=== PATIENT | female | born 1990 | race Two or more races ===

== ENCOUNTER 2023-07-15 17:57 | Emergency (ER) | payer OTHER ==
[~2023-07-15] VITALS: Ht 165.1 cm; Wt 93.2 kg
[~2023-07-15 17:57] MED LIST: NOCURR
[2023-07-15] MEDS ORDERED: ACETAMINOPHEN 500 MG TABLET PO ONE (18:30)
[2023-07-15 18:52] LABS: COVID AG,FIA SOURCE NASAL SWAB
[2023-07-15 19:16] LABS: SARS-COV2 (COVID) ANTIGEN,FIA Negative (Negative)
[2023-07-15 19:17] LABS: INFLUENZA TYPE B NEGATIVE FOR TYPE B (NEGATIVE)
[2023-07-15 19:21] LABS: INFLUENZA TYPE A POSITIVE FOR TYPE A (NEGATIVE)
[2023-07-15] MEDS ORDERED: ALBUTEROL SULFATE 2.5 MG/0.5 ML NEB SOLUTION NEB ONE (19:45)
[2023-07-15] MEDS ORDERED: 0.9% SODIUM CHLORIDE 5 ML NEB SOLUTION NEB ONE (20:36)
[2023-07-15 20:40] VITALS: PULSE 94; RESP 18; O2SAT 95
[2023-07-15 20:55] VITALS: PULSE 101; RESP 18; O2SAT 100
[2023-07-15 21:24] VITALS: BP 124/72; PULSE 84; RESP 22; TEMP 99
== END 2023-07-15 21:31 | disposition home or self-care (01) ==
LOC: EMS 18:31
DX: J10.1 Influenza due to other identified influenza virus with other respiratory manifestations (principal); Z20.822 Contact with and (suspected) exposure to COVID-19
CPT/HCPCS: 87804; 94640; 99285; J7613; Z7502; Z7610

== ENCOUNTER 2024-07-08 09:44 | Emergency (ER) | payer OTHER ==
[~2024-07-08] VITALS: Ht 157.5 cm; Wt 90.5 kg
[2024-07-08 09:48] VITALS: TEMP 98.2
[2024-07-08] MEDS: KETOROLAC TROMETHAMINE 60 MG/2 ML VIAL IM ONE (11:00)
[2024-07-08] MEDS ORDERED: PERCT PO (14:46)
[2024-07-08] MEDS ORDERED: IBUP-1492 PO (14:46)
[2024-07-08 15:02] VITALS: BP 122/72; PULSE 88; RESP 16; O2SAT 99
== END 2024-07-09 02:52 | disposition home or self-care (01) ==
LOC: EMS 09:47
DX: S00.83XA Contusion of other part of head, initial encounter (principal); J45.909 Unspecified asthma, uncomplicated; X58.XXXA Exposure to other specified factors, initial encounter; Y93.89 Activity, other specified; Y92.89 Other specified places as the place of occurrence of the external cause; Y99.8 Other external cause status
CPT/HCPCS: 99283; 70110; 96372; J1885

== ENCOUNTER 2024-09-26 15:23 | Emergency (ER) | payer OTHER ==
[~2024-09-26] VITALS: Ht 157.5 cm; Wt 95.5 kg
[~2024-09-26 15:23] MED LIST changes: +IBUP-1492 PO; +PERCT PO
[2024-09-26 15:26] VITALS: BP 122/66; PULSE 98; RESP 18; TEMP 98.5; O2SAT 95
[2024-09-26 15:45] LABS: COVID AG,FIA SOURCE NASAL SWAB
[2024-09-26 16:22] LABS: INFLUENZA TYPE A NEGATIVE FOR TYPE A (NEGATIVE); INFLUENZA TYPE B POSITIVE FOR TYPE B (NEGATIVE); SARS-COV2 (COVID) ANTIGEN,FIA Negative (Negative)
[2024-09-26] MEDS ORDERED: BUDE10.22 IH (17:52)
[2024-09-26] MEDS ORDERED: OSEL75CA45 PO (20:29)
[2024-09-26] MEDS ORDERED: BENZ-227 PO (20:29)
== END 2024-09-26 20:53 | disposition home or self-care (01) ==
LOC: EMS 15:23
DX: J10.1 Influenza due to other identified influenza virus with other respiratory manifestations (principal); J45.909 Unspecified asthma, uncomplicated; Z79.51 Long term (current) use of inhaled steroids; Z20.822 Contact with and (suspected) exposure to COVID-19
CPT/HCPCS: 87804; 99283